=== PATIENT | male | born 1980 | race Caucasian/White ===

== ENCOUNTER 2021-02-10 08:05 | Outpatient (CLI) | payer BC, SELFPAY ==
--- NOTE | ~2021-02-10 | MR_ITS ---
EXAMINATION: MR cervical spine wo con DATE: 02/10/2021 08:52 INDICATION: Neck pain. TECHNIQUE: Magnetic resonance imaging (MRI) of the cervical spine was performed without intravenous c ontrast. Sequences included sagittal T2-weighted FSE, sagittal STIR FSE, sagittal T1-weighted FSE, ax ial MERGE, and axial T2-weighted FSE. COMPARISON: None FINDINGS: There is mild kyphosis of cervical spine. There is mild chronic anterior wedging of C7 and T2 vertebral bodies. Intervertebral disc heights are normal. The spinal cord signal intensity is norm al. The following disc levels are specifically discussed: C2-C3: The disc does not extend beyond the endplate margin. There is no uncovertebral joint osteoarth ritis. There is mild bilateral facet joint osteoarthritis. There is no neural foraminal stenosis. The re is no central canal stenosis. C3-C4: The disc does not extend beyond the endplate margin. There is mild bilateral uncovertebral tamiko nt osteoarthritis. There is mild bilateral facet joint osteoarthritis. There is no neural foraminal s tenosis. There is no central canal stenosis. C4-C5: The disc does not extend beyond the endplate margin. There is moderate left uncovertebral join t osteoarthritis. There is no facet joint osteoarthritis. There is mild left neural foraminal stenosi s. There is no central canal stenosis. C5-C6: The disc does not extend beyond the endplate margin. There is mild left uncovertebral joint os teoarthritis. There is mild left facet joint osteoarthritis. There is mild left neural foraminal sten osis. There is no central canal stenosis. C6-C7: The disc does not extend beyond the endplate margin. There is no uncovertebral joint osteoarth ritis. There is no facet joint osteoarthritis. There is no neural foraminal stenosis. There is no charles tral canal stenosis. C7-T1: The disc does not extend beyond the endplate margin. There is mild right uncovertebral joint o steoarthritis. There is mild bilateral facet joint osteoarthritis. There is mild right neural foramin al stenosis. There is no central canal stenosis. IMPRESSION: 1. Mild cervical spondylosis. Reviewed, dictated and finalized at location B.
== END 2021-02-10 08:06 ==
PROVIDERS: PCP Internal Medicine; Visit Provider Physician Assistant Medical
DX: M47.892 Other spondylosis, cervical region (principal)
CPT/HCPCS: 72141

== ENCOUNTER 2023-05-13 00:59 | Day surgery (SDC) | payer BC, SELFPAY ==
[2023-05-05 10:50] VITALS: BMI 46.1
[2023-05-13 10:13] VITALS: BP 125/81; PULSE 78; RESP 20; TEMP 36.1; O2SAT 98
[2023-05-13] MEDS: LACTATED RINGERS 1,000 ML 150 ML IV CONT (10:15)
[2023-05-13 10:21] LABS: Glucose Point of Care 107 mg/dl (65-105)
--- NOTE | 2023-05-13 10:58 | WPDANESEPPF ---
Anes - Initial Pre Proc Eval Procedure: Operation Date: 05/13/23 11:30 Proposed Procedures p Colonoscopy - George Eason MD Date/Time: 05/13/23 10:58 Surgeon: George Eason MD Pre Op Diagnosis: family hx of colon ca Patient Data Age: 42 Gender: M Height: 1.8 m Weight: 147.4 kg Last Vital Signs Temp 96.9 F L 05/13/23 10:13 Pulse 78 05/13/23 10:13 Resp 20 05/13/23 10:13 BP 125/81 05/13/23 10:13 Pulse Ox 98 05/13/23 10:13 O2 Del Method Room Air 05/13/23 10:13 Allergies Allergy/AdvReac Type Severity Reaction Status Date / Time brompheniramine Allergy Mild Hives Verified 05/13/23 10:12 dextromethorphan Allergy Mild Hives Verified 05/13/23 10:12 phenylpropanolamine Allergy Mild Unknown Verified 05/13/23 10:12 atorvastatin [From Lipitor] AdvReac Other Verified 05/13/23 10:12 pravastatin AdvReac Other Verified 05/13/23 10:12 Home Medications Medication Instructions Recorded Confirmed Type cholecalciferol (vitamin D3) 125 125 mcg PO DAILY #90 caps 10/28/22 05/13/23 Rx mcg (5,000 unit) capsule metformin 500 mg tablet,extended 500 mg PO DAILY 30 days #90 tabs 02/25/23 05/13/23 Rx release 24 hr rosuvastatin 10 mg tablet (Crestor) 10 mg PO DAILY #90 tabs 02/25/23 05/13/23 Rx semaglutide 0.25 mg or 0.5 mg (2 0.25 mg (0.2 mL) subcut WEEKLY 05/13/23 05/13/23 Rx mg/1.5 mL) subcutaneous pen #1.5 mL injector Laboratory Tests 05/13/23 10:16 POC Capillary Glucose 107 H mg/dl (65-105) Patient hx anesthesia problems: none Family hx anesthesia problems: none Results Review: All pre-operative results and documents have been reviewed as part of the pre-operative evaluation. [facility] Past Medical History Medical History Diabetes mellitus type II, controlled Dyslipidemia Hyperinsulinemia Umbilical hernia Vitamin D deficiency Surgical History Surgical History H/O vasectomy Family History Family History Mother Acute myocardial infarction Diverticulitis Father Hyperlipidemia Diverticulitis Social History Social History Smoking packs per day: 1 Smoking cigarettes per day: 20.0 Years smoked: 15 Smoking pack-years: 15.00 Smoking status: Unknown if ever smoked Tobacco type: cigarettes and cigars Smokeless tobacco user: chewing tobacco Alcohol intake: current Drinks per week: 6 Alcohol use details: BEER Substance use: never Substance use type: does not use Lack of Transportation: No Lack of Food: Never True Current Housing: I Have Housing Concerned About Future Housing: No Difficulty Paying Gas/Electric Bills: No Difficulty Paying for Meds: No Currently Unemployed: No Difficulty w/ Childcare or Family Care: No Living arrangements: alone Occupation/Education: occupation Gender identity (if verbalized by the patient): Male Sexual Orientation (if Verbalized by the Patient): Straight or Heterosexual Anes - Eval Final PreProcedure Day of Procedure 05/13/23 10:58 Patient weight: morbidly obese Heart: regular rate and rhythm Lungs: clear to auscultation Airway: Mallampati scale class II Neurological: alert and oriented Last oral intake: >/= 8 hours ASA classification: III Emergent: no Anesthetic plan: proceed Anesthesia type and monitoring: general GIVS and standard monitoring Results Review: All pre-operative results and documents have been reviewed as part of the pre-operative evaluation. Informed Consent: The patient's anesthetic plan and its attendant risks and benefits were discussed with the patient/family/POA. Questions were solicited and answers provided to the satisfaction of the patient/family/POA.
--- NOTE | 2023-05-13 11:03 | PM.HPGS ---
History of Present Illness History of Present Illness Consent: Risks, benefits, and alternatives have been discussed and questions answered. Patient agrees to proceed with procedure. Chief complaint: family hx of colon ca Narrative: Poli Baig Jr. is a 42 year old male here for first screening colonoscopy, two distant family members had colon cancer Review of Systems Constitutional: Constitutional: Denies headache(s) and Denies weakness Eyes: Eyes: Denies blurry vision ENT: Reports Normal hearing present, Denies headache(s) and Denies neck pain Cardiovascular: Cardiovascular: Denies chest pain and Denies dyspnea Respiratory: Respiratory: Denies dyspnea Gastrointestinal: Gastrointestinal: Reports no additional gastrointestinal complaints Genitourinary: Genitourinary: Denies dysuria Musculoskeletal: Musculoskeletal: Denies neck pain Integumentary/Breasts: Skin/Breast: Denies dry skin Neurologic: Reports Normal hearing present, Denies headache(s) and Denies weakness Psychiatric: Psychiatric: Denies anxiety Endocrine: Endocrine: Denies change in body appearance Hematologic/Lymphatic: Hematologic/Lymphatic: Denies easy bleeding Allergic/Immunologic: Allergic/Immunologic: Denies urticaria PMFSH Past Medical History Medical History (Updated 05/13/23 @ 11:04 by George Eason MD) Colon cancer screening Diabetes mellitus type II, controlled Dyslipidemia Hyperinsulinemia Umbilical hernia Vitamin D deficiency Surgical History Surgical History H/O vasectomy Family History Family History Mother Acute myocardial infarction Diverticulitis Father Hyperlipidemia Diverticulitis Social History Social History Smoking packs per day: 1 Smoking cigarettes per day: 20.0 Years smoked: 15 Smoking pack-years: 15.00 Smoking status: Unknown if ever smoked Tobacco type: cigarettes and cigars Smokeless tobacco user: chewing tobacco Alcohol intake: current Drinks per week: 6 Alcohol use details: BEER Substance use: never Substance use type: does not use Lack of Transportation: No Lack of Food: Never True Current Housing: I Have Housing Concerned About Future Housing: No Difficulty Paying Gas/Electric Bills: No Difficulty Paying for Meds: No Currently Unemployed: No Difficulty w/ Childcare or Family Care: No Living arrangements: alone Occupation/Education: occupation Gender identity (if verbalized by the patient): Male Sexual Orientation (if Verbalized by the Patient): Straight or Heterosexual Meds Home Medications and Allergies Home Medications Medication Instructions Recorded Confirmed Type cholecalciferol (vitamin D3) 125 125 mcg PO DAILY #90 caps 10/28/22 05/13/23 Rx mcg (5,000 unit) capsule metformin 500 mg tablet,extended 500 mg PO DAILY 30 days #90 tabs 02/25/23 05/13/23 Rx release 24 hr rosuvastatin 10 mg tablet (Crestor) 10 mg PO DAILY #90 tabs 02/25/23 05/13/23 Rx semaglutide 0.25 mg or 0.5 mg (2 0.25 mg (0.2 mL) subcut WEEKLY 05/13/23 05/13/23 Rx mg/1.5 mL) subcutaneous pen #1.5 mL injector Allergies Allergy/AdvReac Type Severity Reaction Status Date / Time brompheniramine Allergy Mild Hives Verified 05/13/23 10:12 dextromethorphan Allergy Mild Hives Verified 05/13/23 10:12 phenylpropanolamine Allergy Mild Unknown Verified 05/13/23 10:12 atorvastatin [From Lipitor] AdvReac Other Verified 05/13/23 10:12 pravastatin AdvReac Other Verified 05/13/23 10:12 Vital Signs Vital Signs - 24 hr 05/13/23 10:13 Temperature 96.9 F L Pulse Rate 78 Respiratory Rate 20 Blood Pressure 125/81 Pulse Oximetry 98 Oxygen Delivery Room Air Exam Const: General: comfortable and no acute distress HENMT: Face/Nose/Sinus: Normal nares present Eyes: Genera
[2023-05-13 11:30] VITALS: BP 117/74; PULSE 90; RESP 25; O2SAT 92
[2023-05-13 11:40] VITALS: BP 114/67; PULSE 75; RESP 22; O2SAT 95
[2023-05-13 11:50] VITALS: BP 122/69; PULSE 73; RESP 21; O2SAT 95
== END 2023-05-13 11:56 | disposition home or self-care (01) ==
PROVIDERS: PCP Physician Assistant Medical; Visit Provider Internal Medicine Gastroenterology
PROC: 0DJD8ZZ Inspection of Lower Intestinal Tract, Via Natural or Artificial Opening Endoscopic (ICD-10-PCS; CPT 45378; principal; 2023-05-13 11:30)
DX: Z12.11 Encounter for screening for malignant neoplasm of colon (principal); D12.3 Benign neoplasm of transverse colon; D12.5 Benign neoplasm of sigmoid colon; K63.5 Polyp of colon; K57.30 Diverticulosis of large intestine without perforation or abscess without bleeding; K64.8 Other hemorrhoids; Z80.0 Family history of malignant neoplasm of digestive organs; E11.9 Type 2 diabetes mellitus without complications; E78.5 Hyperlipidemia, unspecified; E55.9 Vitamin D deficiency, unspecified; Z79.84 Long term (current) use of oral hypoglycemic drugs; Z79.899 Other long term (current) drug therapy; F17.290 Nicotine dependence, other tobacco product, uncomplicated; F17.210 Nicotine dependence, cigarettes, uncomplicated; F17.220 Nicotine dependence, chewing tobacco, uncomplicated; E66.01 Morbid (severe) obesity due to excess calories; Z68.42 Body mass index [BMI] 45.0-49.9, adult
CPT/HCPCS: 45385; 82948; 88305; J2704; J7120